=== PATIENT | male | born 1945 | race Caucasian/White ===

== ENCOUNTER 2016-12-30 10:01 | Day surgery (SDC) | payer BC, MEDICARE ==
[2016-12-16 09:20] LABS: HEMATOCRIT 45.4 % (37.9-51.0); HEMOGLOBIN 15.2 g/dL (13.5-17.0); HGB HCT DIFFERENCE 0.2; MEAN CORPUSCULAR HEMOGLOBIN 29.9 pg (27.0-33.4); MEAN CORPUSCULAR HGB CONC 33.4 g/dL (32.0-36.0); MEAN CORPUSCULAR VOLUME 89 fl (80-97); RED BLOOD COUNT 5.08 10^6/uL (4.35-5.55); RED CELL DISTRIBUTION WIDTH 13.6 % (11.5-14.0); WHITE BLOOD COUNT 10.9 10^3/uL (4.0-10.5)
[2016-12-16 09:46] LABS: ANION GAP 10 (5-19); BLOOD UREA NITROGEN 28 mg/dL (7-20); CALCIUM 10.3 mg/dL (8.4-10.2); CARBON DIOXIDE 30 mmol/L (22-30); CHLORIDE 103 mmol/L (98-107); CREATININE RESULT 1.06 mg/dL (0.52-1.25); GLUCOSE 112 mg/dL (75-110); POTASSIUM 4.5 mmol/L (3.6-5.0); SODIUM 142.6 mmol/L (137-145)
[~2016-12-30 10:01] MED LIST: ACETAMINOPHEN 325 MG TABLET PO PRN; LACTATED RINGERS 1000 ML IV PRN
[2016-12-30] MEDS ORDERED: KETAMINE HCL INJ 500 MG/10 ML VIAL ONE (12:42)
[2016-12-30] MEDS ORDERED: FENTANYL CITRATE INJ/PF 100 MCG/2 ML AMPUL ONE (12:43)
[2016-12-30] MEDS ORDERED: MIDAZOLAM 2 MG/2 ML INJ ONE ×2 (12:43)
[2016-12-30] MEDS ORDERED: PROPOFOL INJ 200 MG/20 ML VIAL IV ONE (12:44)
[2016-12-30] MEDS ORDERED: DEXMEDETOMIDINE INJ 80 MCG/20 ML VIAL IV ONE (12:44)
--- NOTE | 2016-12-30 13:34 | Operative Report ---
Operative Report DATE OF SURGERY: 12/30/16 PREOPERATIVE DIAGNOSIS: Screening for colon malignancy POSTOPERATIVE DIAGNOSIS: Diverticulosis OPERATION: Colonoscopy SURGEON: RAJ GRIFFIN ANESTHESIA: GA TISSUE REMOVED OR ALTERED: None COMPLICATIONS: None ESTIMATED BLOOD LOSS: none INTRAOPERATIVE FINDINGS: Scattered rare sigmoid diverticuli PROCEDURE: Informed consent was obtained. Patient was brought to the operating room placed on the operating table with his left side down. Procedure was done under LMAC. Digital rectal exam revealed no palpable perianal masses. Endoscope was passed via the patient's anus it was fed to the cecum. The bowel prep was adequate with the green yellow liquid throughout the colon requiring irrigation aspiration to obtain adequate visualization. The cecum, right colon , transverse colon, descending colon were all normal with no polyps no masses. Sigmoid colon had the several small diverticuli otherwise it was normal. The rectum appeared normal. Patient tolerated procedure well with no apparent complications and was taken to the recovery area in stable condition. Recommend repeat colonoscopy in 10 years sooner if he has symptoms.
--- NOTE | 2016-12-30 13:36 | PDOC DISCHARGE SUMMARY ---
Discharge Summary (SDC) - Discharge Final Diagnosis: Sigmoid diverticuli Date of Surgery: 12/30/16 Discharge Date: 12/30/16 Condition: Good Treatment or Instructions: Colonoscopy. May discharge patient home when met discharge criteria. Follow- up with me in 2-3 weeks. Discharge Diet: As Tolerated Discharge Activity: Activity As Tolerated Report the Following to Your Physician Immediately: Increase in Pain, Fever over 101 Degrees, Unusual Bleeding
[2016-12-30] MEDS ORDERED: METOCLOPRAMIDE HCL INJ/PF 10 MG/2 ML SDV ONE (14:03)
[2016-12-30] MEDS ORDERED: GLYCOPYRROLATE INJ 0.4 MG/2 ML VIAL ONE (14:03)
[2016-12-30] MEDS ORDERED: ONDANSETRON HCL INJ/PF 4 MG/2 ML SDV ONE (14:03)
[2016-12-30 15:05] VITALS: BP 144/74
== END 2016-12-30 15:05 | disposition home or self-care (01) ==
LOC: OROUT 10:01
PROVIDERS: ATTEND Surgery
PROC: 0DJD8ZZ Inspection of Lower Intestinal Tract, Via Natural or Artificial Opening Endoscopic (ICD-10-PCS; principal; 2016-12-30 12:00)
DX: Z12.11 Encounter for screening for malignant neoplasm of colon (principal); K57.30 Diverticulosis of large intestine without perforation or abscess without bleeding; I10 Essential (primary) hypertension; G70.00 Myasthenia gravis without (acute) exacerbation; E78.00 Pure hypercholesterolemia, unspecified; Z87.891 Personal history of nicotine dependence; Z79.899 Other long term (current) drug therapy
CPT/HCPCS: 45378; 36415 ×2; 84132; 85027; 80048; J2250; J3010; J3490 ×2; J2765; J2405; J2704; 810

== ENCOUNTER → 2018-12-02 | Outpatient (CLI) | payer MEDICARE ==
--- NOTE | 2018-12-03 08:51 | RADIOLOGY REPORT (SQ) ---
EXAM DESCRIPTION: MRI LT LOWER JOINT WITHOUT COMPLETED DATE/TIME: 12/02/2018 4:04 pm REASON FOR STUDY: M25.552 PAIN IN LEFT HIP M25.552 PAIN IN LEFT HIP COMPARISON: None. TECHNIQUE: [employer] images acquired and stored on PACS. Multiplanar images to include fat sensitive s equences as T1, fluid sensitive sequences as T2/STIR and gradient echo sequences. Large FOV fat and f luid sensitive sequences include pelvis and opposite hip. LIMITATIONS: None. FINDINGS: BONE CORTEX AND MARROW: No generalized marrow replacement. No occult fracture. No worriso me bone lesions. TARGETED HIP: FEMORAL HEAD: Mild over coverage of the femoral heads consistent with femoroacetabular impingement. ACETABULUM: Bulky osteophytes bilaterally. LABRUM: Chronic cartilage loss. Posterior paralabral cyst. TROCHANTER: No trochanteric bursal effusion. No edema/fluid at the insertions of the gluteus medius and gluteus minimus. OPPOSITE HIP: Limited evaluation. See above. No worrisome bone lesions. No significant effusion. PELVIS, LOWER LUMBAR SPINE, SACROILIAC JOINTS: PELVIS : Nothing acute. L SPINE: Mild spondylosis. MUSCLES AND SOFT TISSUES: Adductors and piriformis normal. Abductors and greater trochanteric bursa n ormal without edema or fluid. Iliopsoas bursa without fluid. Hamstring attachments without edema or t ear. PELVIC SOFT TISSUES: No masses or adenopathy. SCIATIC NERVE: Identified, without masses or abnormal signal. OTHER: No other significant finding. IMPRESSION: Femoroacetabular impingement. Osteoarthritis. No acute findings. TECHNICAL DOCUMENTATION: JOB ID: [id number] [facility]- All Rights Reserved Reading location - IP/workstation name: [email or web address]
== END ==
LOC: RAD 14:51
PROVIDERS: ATTEND Internal Medicine
DX: M25.552 Pain in left hip (principal)

== ENCOUNTER 2019-09-01 10:56 | Day surgery (SDC) | payer MEDICARE ==
[~2019-09-01 10:56] MED LIST changes: -ACETAMINOPHEN 325 MG TABLET PO PRN; +KETOROLAC TROMETHAMINE 0.45% 4 DROP/0.4 ML DROPERETTE OS PRN; -LACTATED RINGERS 1000 ML IV PRN
[2019-09-01] MEDS: TROPICAMIDE 1% OPH SOLN 15 ML OS PRN ×3 (11:31→11:51)
[2019-09-01] MEDS: TETRACAINE HCL 0.5% OPH SOLN 4 ML OS PRN ×4 (11:31→12:58)
[2019-09-01] MEDS: BESIFLOXACIN HCL 0.6% OPH SUSP 5 ML BOTTLE OS PRN ×4 (11:32→13:24)
[2019-09-01] MEDS: CYCLOPENTOLATE 0.2%/PHENYLEPHRINE 1% OPH SOLN 2 ML OS PRN ×3 (11:32→11:51)
[2019-09-01] MEDS ORDERED: FENTANYL CITRATE INJ/PF 100 MCG/2 ML AMPUL ONE (11:37)
[2019-09-01] MEDS ORDERED: MIDAZOLAM 2 MG/2 ML INJ ONE (11:37)
[2019-09-01] MEDS: CHONDR SU A NA/HYALUR INTRAOC KIT (SURGICARE) ONE ×2 (12:12→13:12)
[2019-09-01] MEDS: EPINEPHRINE INJ/PF 1 MG/1 ML AMPULE ONE ×2 (12:12→13:12)
[2019-09-01] MEDS: LIDOCAINE 1% INJ-PF (10 MG/ML) 30 ML SDV ONE ×2 (12:12→13:12)
[2019-09-01] MEDS: DORZOLAMIDE HCL 2%/TIMOLOL MALEAT 0.5% OPH SOLN 10 ML OS PRN ×2 (12:31→13:24)
--- NOTE | 2019-09-18 18:05 | Operative Report ---
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 Ball] ANESTHESIA: Topical with IV sedation ESTIMATED BLOOD LOSS: None TISSUE REMOVED OR ALTERED: None COMPLICATIONS: None INDICATIONS FOR SURGERY: [Mr. Méndez is a 74-year-old male who presented to our clinic complaining of difficulty seeing to read, to drive and to play golf. On examination he was found to have a best corrected visual acuity of 20/25 and with glare testing 20/50. He was also found to have a 2+ nuclear 2+ cortical 2+ posterior subcapsular cataract In the left eye. We discussed the risks, benefits and alternatives of cataract extraction and intraocular lens implant as a means of improving his vision. Risks that were presented to the patient included infection, bleeding, retinal detachment, persistent corneal swelling and possible need for additional surgery. And I also explain to the patient may need to wear glasses after surgery. After our discussion he indicated his interest in having this procedure performed by signing and informed, witnessed consent form.] PROCEDURE: On the day of surgery, the patient was given a topical application to the left eye while in the preop holding area that consist of lidocaine jelly, cyclopentolate, Mydriacyl, phenylephrine and Tetracaine. The patient was taken to the operating room in the supine position in a standard eye bed. Intravenous sedation was administered and the patient was prepped and draped in the standard ophthalmic fashion in the operating room. Timeout was performed. Attention was directed to the right eye, where paracentesis was created at the 5:30 position at the limbus with a 15 degree blade. The anterior chamber was filled with 0.3 mL's of 1% methylparaben free lidocaine, and after 30 seconds, the anterior chamber was filled with viscoelastic material. A 3-plane corneal incision was then made with a jadiel keratome at 3 o'clock position at the limbus. Despite use of the dilating drops, the inner chamber lidocaine, and viscoelastic material, the pupil remained dilated only to about [3.0] mm in diameter. I chose to use a Malyugin ring to expand the pupil for better visualization of the lens during the remainder of the surgery. The [6.25] mm Malyugin was removed from package inspected and found to be free of defects. It was loaded into its geography instructor. The tip of the geography instructor was passed through that temporal limbal wound and through this the site the ring was advanced into the anterior chamber, where it grasped the iris at the pupil margin at the 3 o'clock, 6 o'clock, 9 oclock and 12 o'clock positions, and this extended the pupil to a [6.25] mm diameter. A continuous curvilinear capsulorrhexis was then made in the anterior capsule of the lens with a set of cystotome. The lens was hydrodissected using balanced saline solution and the lens nucleus was removed by phacoemulsification using the divide and conquer technique. The CDE was [13.28]. The cortical material was removed from the posterior capsular bag with irrigation and aspiration. The posterior capsular bag was then filled with viscoelastic material, and a lens implant was inserted into the posterior cap sular bag. The lens chosen for this case is a one-piece acrylic lens from [[employer], Model SN60WF, serial number [id number], lens power 22.0 D]. The lens was removed and inspected, and found to be without defects. It was loaded into an [] geography instructor. The geography instructor was passed through temporal limb of the wound into the posterior capsular bag. It was positioned in the posterior capsular bag the [place] spatula. There viscoelastic material was then removed from the anterior chamber and the posterior capsule bag by irrigation and aspiration. The Malyugin ring was disengaged from the iris with Sinskey hook, and it was removed from the temporal lobe of the wound with the Sinskey hook. The viscoelastic material was then removed by irrigation and aspiration. The wounds were closed by stromal hydration. They were tested with Weck-Gela sponges and found to have no leaks. The intraocular pressure was assessed by manual palpation and found to be with in the physiologic range. The drapes and speculum were removed. Periocular skin was washed with a wet followed by a dry 4 x 4 gauze and drops of Besivance, Durezol, and Combigan were installed in the inferior cul-de-sac of the right eye. The eye was covered with a Funez shield. The patient was taken to the recovery room in good condition. The patient tolerated the procedure well. The patient was given a prescription for Zymaxid to use every 2 hours while awake in the right eye, and he will return to my clinic for follow-up evaluation with me the day after surgery.
== END 2019-09-01 13:23 | disposition home or self-care (01) ==
LOC: SC 10:56
PROVIDERS: ATTEND Ophthalmology
DX: H25.812 Combined forms of age-related cataract, left eye (principal); I10 Essential (primary) hypertension; E78.00 Pure hypercholesterolemia, unspecified; Z79.899 Other long term (current) drug therapy; G70.00 Myasthenia gravis without (acute) exacerbation; R01.1 Cardiac murmur, unspecified; Z87.891 Personal history of nicotine dependence
CPT/HCPCS: 66984; 00142; V2632; J2250; J3490 ×3; A9270; J0171; J3010; 142

== ENCOUNTER → 2020-12-06 | Outpatient (CLI) | payer MEDICARE ==
[2020-12-06 11:58] LABS: ABSOLUTE BASOPHILS # (AUTO) 0.1 10^3/uL (0.0-0.2); ABSOLUTE EOSINOPHILS # (AUTO) 0.4 10^3/uL (0.0-0.6); ABSOLUTE LYMPHOCYTES (AUTO) 2.3 10^3/uL (0.5-4.7); ABSOLUTE MONOCYTES (AUTO) 0.8 10^3/uL (0.1-1.4); BASOPHILS % (AUTO) 0.8 % (0-2); EOSINOPHILS % (AUTO) 5.1 % (0-6); HEMATOCRIT 42.6 % (37.9-51.0); LYMPHOCYTES % (AUTO) 30.2 % (13-45); MEAN CORPUSCULAR HEMOGLOBIN 28.4 pg (27.0-33.4); MEAN CORPUSCULAR HGB CONC 32.8 g/dL (32.0-36.0); MEAN CORPUSCULAR VOLUME 87 fl (80-97); PLATELET COUNT 222 10^3/uL (150-450); RED BLOOD COUNT 4.92 10^6/uL (4.35-5.55); RED CELL DISTRIBUTION WIDTH 13.6 % (11.5-14.0); SEGMENTED NEUTROPHILS % (AUTO) 52.9 % (42-78); TOTAL CELLS COUNTED % (AUTO) 100 %; WHITE BLOOD COUNT 7.5 10^3/uL (4.0-10.5)
[2020-12-06 12:20] LABS: ALBUMIN 4.5 g/dL (3.5-5.0); ALKALINE PHOSPHATASE 75 U/L (38-126); ANION GAP 5 (5-19); ASPARTATE AMINO TRANSFERASE 40 U/L (17-59); BILIRUBIN,DIRECT 0.2 mg/dL (0.0-0.4); BILIRUBIN,TOTAL 0.4 mg/dL (0.2-1.3); BLOOD UREA NITROGEN 19 mg/dL (7-20); CALCIUM 9.5 mg/dL (8.4-10.2); CARBON DIOXIDE 29 mmol/L (22-30); CHLORIDE 106 mmol/L (98-107); GLUCOSE 139 mg/dL (75-110); POTASSIUM 4.5 mmol/L (3.6-5.0); TOTAL PROTEIN 7.4 g/dL (6.3-8.2); TRIGLYCERIDES 129 mg/dL (<150)
[2020-12-06 12:31] LABS: DIRECT LDL 85 mg/dL (<100)
== END ==
LOC: OD 10:55
PROVIDERS: ATTEND Internal Medicine
DX: E11.9 Type 2 diabetes mellitus without complications (principal); E78.00 Pure hypercholesterolemia, unspecified; Z79.899 Other long term (current) drug therapy; M15.9 Polyosteoarthritis, unspecified; Z00.00 Encounter for general adult medical examination without abnormal findings; Z12.5 Encounter for screening for malignant neoplasm of prostate; R35.0 Frequency of micturition
CPT/HCPCS: 36415; 85025; 80053; 83036; 80061; G0103

== ENCOUNTER → 2020-12-07 | Outpatient (CLI) | payer MEDICARE ==
[~2020-12-07] MED LIST changes: +COVID-19 VACCINE (PFIZER)/PF 30 MCG/0.3 ML VIAL IM ONE; +EPINEPHRINE INJ/PF 1 MG/1 ML AMPULE IM PRN; -KETOROLAC TROMETHAMINE 0.45% 4 DROP/0.4 ML DROPERETTE OS PRN
== END ==
LOC: EMPHEALTH 10:59
PROVIDERS: ATTEND Internal Medicine
DX: Z23 Encounter for immunization (principal)
CPT/HCPCS: 91300